=== PATIENT | female | born 1955 | race Caucasian/White ===

== ENCOUNTER 2023-08-30 16:36 | Inpatient (IN) | payer MEDICARE ==
[~2023-08-30] VITALS: Ht 177.8 cm; Wt 63.5 kg
[2023-08-30 17:20] LABS: BASOPHILS % (AUTO) 0.4 % (0.0-2.0); EOSINOPHILS # (AUTO) 0.1 K/uL (0.0-0.7); HEMATOCRIT 42 % (33-45); HEMOGLOBIN 13.7 g/dL (11.5-14.8); LYMPHOCYTES # (AUTO) 1.2 K/uL (0.8-4.8); LYMPHOCYTES % (AUTO) 19.4 % (20.0-44.0); MEAN CORPUSCULAR HEMOGLOBIN 32 PG (26.0-33.0); MEAN CORPUSCULAR HGB CONC 33 g/dl (31.0-36.0); MEAN CORPUSCULAR VOLUME 96 fL (82-100); MONOCYTES # (AUTO) 0.4 K/uL (0.1-1.30); MONOCYTES % (AUTO) 6.3 % (2.0-12.0); NEUTROPHILS # (AUTO) 4.3 K/uL (1.8-8.9); NEUTROPHILS % (AUTO) 71.9 % (43.0-81.0); PLATELET COUNT (AUTO) 262 K/uL (150-450); RED BLOOD CELL COUNT(AUTO) 4.35 MIL/uL (4.0-5.2); RED CELL DISTRIBUTION WIDTH 14.2 % (11.5-15.0)
[2023-08-30 17:34] LABS: CALCIUM, SERUM 9.4 mg/dL (8.5-10.1); CARBON DIOXIDE 27 mmol/L (21-32); CHLORIDE 107 mmol/L (98-107); GLUCOSE 75 mg/dL (74-106); POTASSIUM 4.8 mmol/L (3.5-5.1); SODIUM SERUM 140 mmol/L (136-145); UREA NITROGEN, BLOOD 22 mg/dL (7-18)
[2023-08-30 17:38] LABS: APPEARANCE,URINE Clear (CLEAR); BILIRUBIN,URINE Negative (NEGATIVE); BLOOD, URINE Negative Ery/uL (NEGATIVE); COLOR,URINE YELLOW (YELLOW); KETONES,URINE Negative (NEGATIVE); LEUKOCYTE ESTERASE ,URINE Negative (NEGATIVE); NITRITE, URINE Negative (NEGATIVE); PH,URINE 6.5 (5.0-8.0); PROTEIN,URINE Negative (NEGATIVE); UGLUCOSE Negative (NEGATIVE); UROBILINOGEN,URINE 0.2 EU/dL (0.2)
[2023-08-30 17:40] LABS: ALANINE AMINOTRANSFERASE 51 U/L (12-78); ALBUMIN 3.6 g/dL (3.4-5.0); ALKALINE PHOSPHATASE 112 U/L (46-116); ASPARTATE AMINOTRANSFERASE 26 U/L (15-37); BILIRUBIN,DIRECT 0.1 mg/dL (0.0-0.2); BILIRUBIN,TOTAL 0.3 mg/dL (0.2-1.0); INR 0.96 (0.91-1.10); PARTIAL THROMBOPLASTIN TIME 32.7 SEC (24.3-34.3); PROTHROMBIN TIME 9.9 SECS (9.2-11.1); TOTAL PROTEIN, SERUM 7.4 g/dL (6.4-8.2)
[2023-08-30] MEDS: IV NS 0.9% 1,000 ML BAG IV ONE (18:28)
[2023-08-30] MEDS: MORPHINE SULFATE INJ 2 MG/ML DISP.SYRIN IV ONE (18:28)
[2023-08-30 20:02] LABS: THYROID STIMULATING HORMONE 0.791 uIU/mL (0.358-3.74)
[2023-08-30] MEDS ORDERED: MAGNESIUM HYDROXIDE 30 ML UDC PO PRN (22:00)
[2023-08-30] MEDS ORDERED: Z GUARD REMEDY 4 OZ OINT TP PRN (22:00)
[2023-08-30] MEDS ORDERED: ONDANSETRON HCL/PF 4 MG/2 ML VIAL IVP PRN (22:00)
[2023-08-30] MEDS ORDERED: IV NS 0.9% 1,000 ML IV PRN (22:00)
[2023-08-30] MEDS ORDERED: MAG HYDROX/AL HYDROX/SIMETH 30 ML UDC PO PRN (22:00)
[2023-08-31 07:16] LABS: BASOPHILS % (AUTO) 0.5 % (0.0-2.0); EOSINOPHILS # (AUTO) 0.2 K/uL (0.0-0.7); EOSINOPHILS % (AUTO) 3.5 % (0.0-6.0); HEMATOCRIT 38 % (33-45); HEMOGLOBIN 12.5 g/dL (11.5-14.8); LYMPHOCYTES % (AUTO) 36.4 % (20.0-44.0); MEAN CORPUSCULAR HEMOGLOBIN 33 PG (26.0-33.0); MEAN CORPUSCULAR HGB CONC 33 g/dl (31.0-36.0); MEAN CORPUSCULAR VOLUME 99 fL (82-100); MONOCYTES # (AUTO) 0.4 K/uL (0.1-1.30); MONOCYTES % (AUTO) 6.8 % (2.0-12.0); NEUTROPHILS % (AUTO) 52.8 % (43.0-81.0); PLATELET COUNT (AUTO) 223 K/uL (150-450); RED BLOOD CELL COUNT(AUTO) 3.83 MIL/uL (4.0-5.2); RED CELL DISTRIBUTION WIDTH 14.3 % (11.5-15.0); WHITE BLOOD COUNT (AUTO) 5.6 K/uL (4.3-11.0)
[2023-08-31 07:34] LABS: CALCIUM, SERUM 8.8 mg/dL (8.5-10.1); MAGNESIUM 1.8 mg/dL (1.8-2.4); PHOSPHORUS 3.1 mg/dL (2.5-4.9); POTASSIUM 3.8 mmol/L (3.5-5.1)
[2023-08-31] MEDS ORDERED: ATOR40TA PO (08:04)
[2023-08-31] MEDS ORDERED: LACT10SO68 PO (08:04)
[2023-08-31] MEDS ORDERED: LEVO75TA7 PO (08:04)
[2023-08-31] MEDS ORDERED: CHOL500062 PO (08:04)
[2023-08-31] MEDS ORDERED: LEVA15HF4 IH (08:04)
[2023-08-31] MEDS ORDERED: [UNRECOGNIZED DRUG - CODE] PO (08:04)
[2023-08-31] MEDS ORDERED: CALC500T88 PO (08:04)
[2023-08-31] MEDS ORDERED: VITS42.53 TP (08:04)
[2023-08-31] MEDS ORDERED: GLUC1KIT IM (08:04)
[2023-08-31] MEDS ORDERED: BUSP10TA3 PO (08:04)
[2023-08-31] MEDS ORDERED: LITH600C PO (08:04)
[2023-08-31] MEDS ORDERED: CLOZ100T32 PO ×2 (08:04)
[2023-08-31] MEDS ORDERED: DOCU250C14 PO (08:04)
[2023-08-31] MEDS ORDERED: LIDO30AD10 TP (08:04)
[2023-08-31] MEDS ORDERED: MEMA10TA PO (08:04)
[2023-08-31] MEDS ORDERED: MAG30ORA PO (08:04)
[2023-08-31] MEDS ORDERED: ACET325T53 PO (08:04)
[2023-08-31] MEDS ORDERED: GALA8TAB8 PO (08:04)
[2023-08-31] MEDS ORDERED: METF-442 PO (08:04)
[2023-08-31] MEDS ORDERED: FAMO20TA8 PO (08:04)
[2023-08-31] MEDS ORDERED: GALA4TAB11 PO (08:04)
[2023-08-31] MEDS ORDERED: HALO5TAB PO (08:04)
[2023-08-31] MEDS ORDERED: MELA5TAB PO (08:04)
[2023-08-31] MEDS ORDERED: CARV6.252 PO (08:04)
[2023-08-31] MEDS ORDERED: HYDR50CA5 PO (08:04)
[2023-08-31] MEDS ORDERED: BISA10SU11 RC (08:04)
[2023-08-31 12:10] VITALS: BP 126/72; TEMP 98.2; O2SAT 99
[2023-08-31] MEDS: IV NS 0.9% 1,000 ML IV SCH (12:36)
[2023-08-31 16:00] VITALS: BP 122/89; TEMP 98.2; O2SAT 98
[2023-08-31] MEDS ORDERED: MAG HYDROX/AL HYDROX/SIMETH 30 ML UDC PO PRN (18:30)
[2023-08-31] MEDS ORDERED: ACETAMINOPHEN 325 MG TABLET PO PRN (18:30)
[2023-08-31] MEDS ORDERED: BISACODYL SUPP (10 MG) 10 MG/SUPP.RECT SUPP.RECT RC PRN (18:30)
[2023-08-31] MEDS ORDERED: LACTULOSE 10 G/15 ML UDC (PYXIS) PO PRN (19:00)
[2023-08-31 20:00] VITALS: BP 139/76; TEMP 97.3; O2SAT 98
[2023-08-31] MEDS: busPIRone 5 MG TABLET PO SCH (20:35)
[2023-08-31] MEDS: ACETAMINOPHEN 325 MG TABLET PO PRN (20:35)
[2023-08-31] MEDS: CLOZAPINE 100 MG TABLET PO SCH (21:47)
[2023-08-31] MEDS: ATORVASTATIN 40 MG TABLET PO SCH (21:47)
[2023-08-31] MEDS: LITHIUM CARBONATE (300 MG CAP) 300 MG CAPSULE PO SCH (21:48)
[2023-08-31] MEDS: GALANTAMINE HYDROBROMIDE 4 MG TABLET PO SCH (21:48)
[2023-08-31] MEDS ORDERED: Medication Not On Formulary EA (Melatonin 10 MG) PO SCH (22:00)
[2023-08-31] MEDS: MORPHINE SULFATE INJ 2 MG/ML DISP.SYRIN IV PRN (23:40)
[2023-09-01 04:00] VITALS: BP 127/81; TEMP 98; O2SAT 94
[2023-09-01 08:00] VITALS: BP 115/57; TEMP 97.4; O2SAT 94
[2023-09-01] MEDS ORDERED: CLOZAPINE 150 MG PO SCH (09:00)
[2023-09-01] MEDS: LIDOCAINE 5% (PATCH) 1 EA PATCH TP SCH (09:15)
[2023-09-01] MEDS: CARVEDILOL 6.25 MG TABLET PO SCH (09:16)
[2023-09-01] MEDS: CALCIUM CARBONATE (1250) 500 MG TABLET PO SCH (09:16)
[2023-09-01] MEDS: CLOZAPINE 100 MG TABLET PO SCH ×2 (09:16→12:42)
[2023-09-01] MEDS: MEMANTINE HCL 5 MG TABLET PO SCH (09:16)
[2023-09-01] MEDS: METFORMIN 500 MG TABLET PO SCH (09:16)
[2023-09-01] MEDS: LEVOTHYROXINE SODIUM 75 MCG TABLET PO SCH (09:16)
[2023-09-01] MEDS: DOCUSATE SODIUM 250 MG CAPSULE PO SCH (09:16)
[2023-09-01] MEDS: FAMOTIDINE (20 MG) 20 MG TABLET PO SCH (09:16)
[2023-09-01] MEDS: HYDROCODONE/APAP 5/325MG TABLET PO PRN (09:40)
[2023-09-01] MEDS ORDERED: CLOZAPINE 25 MG TABLET PO SCH (13:00)
[2023-09-01 16:00] VITALS: BP 119/77; TEMP 97.9; O2SAT 95
[2023-09-01 20:00] VITALS: BP 133/69; TEMP 98.4; O2SAT 95
[2023-09-02 04:00] VITALS: BP 129/62; TEMP 98.1; O2SAT 97
[2023-09-02 08:00] VITALS: BP 109/72; TEMP 97.7; O2SAT 97
[2023-09-02 16:00] VITALS: BP 146/75; TEMP 97.8; O2SAT 97
[2023-09-02 20:00] VITALS: BP 123/68; TEMP 98.3; O2SAT 96
[2023-09-03 06:00] VITALS: BP 114/78; TEMP 98.6; O2SAT 100
[2023-09-03 08:18] VITALS: BP 105/65; TEMP 98.3; O2SAT 96
[2023-09-03 09:15] VITALS: BP 105/65
== END 2023-09-03 12:00 | DRG 640 ==
LOC: ER 16:45 → TRANSITION 08-31 05:29 → MEDSG1 08-31 11:16
PROVIDERS: ADMIT Internal Medicine; ATTEND Internal Medicine
DX: E86.0 Dehydration (principal); G93.41 Metabolic encephalopathy; E44.1 Mild protein-calorie malnutrition; M94.0 Chondrocostal junction syndrome [Tietze]; I10 Essential (primary) hypertension; M81.0 Age-related osteoporosis without current pathological fracture; E78.5 Hyperlipidemia, unspecified; E88.09 Other disorders of plasma-protein metabolism, not elsewhere classified; F31.9 Bipolar disorder, unspecified; I11.0 Hypertensive heart disease with heart failure; I25.10 Atherosclerotic heart disease of native coronary artery without angina pectoris; I50.9 Heart failure, unspecified; Z79.84 Long term (current) use of oral hypoglycemic drugs; R53.1 Weakness; R13.10 Dysphagia, unspecified; M19.90 Unspecified osteoarthritis, unspecified site; Z68.20 Body mass index [BMI] 20.0-20.9, adult
CPT/HCPCS: 36415; 70450-TC; 71045-TC; 80048-TC; 80076-TC; 82962-TC; 83735-TC; 83880; 84100-TC; 84439-TC; 84443-TC; 84484-TC; 85025-TC; 85730-TC; 87081-TC; 93307-TC; G0378; J2270; J7030

== ENCOUNTER 2023-10-31 18:53 | Inpatient (IN) | payer MEDICARE ==
[~2023-10-31] VITALS: Ht 177.8 cm; Wt 68.0 kg
[2023-10-31] VITALS: BP 108/53; TEMP 98.1; O2SAT 94
[~2023-10-31 18:53] MED LIST: ACET325T53 PO; ATOR40TA PO; BISA10SU11 RC; BUSP10TA3 PO; CALC500T88 PO; CARV6.252 PO; CHOL500062 PO; CLOZ100T32 PO; DOCU250C14 PO; FAMO20TA8 PO; GALA4TAB11 PO; GALA8TAB8 PO; GLUC1KIT IM; HALO5TAB PO; HYDR50CA5 PO; LACT10SO68 PO; LEVA15HF4 IH; LEVO75TA7 PO; LIDO30AD10 TP; LITH600C PO; LORA-258 PO; MAG30ORA PO; MELA5TAB PO; MEMA10TA PO; METF-442 PO; VITS42.53 TP; [UNRECOGNIZED DRUG - CODE] PO
[2023-10-31] MEDS ORDERED: HYDROCODONE/APAP 5/325MG TABLET ONE (19:40)
[2023-10-31 19:51] LABS: BASOPHILS % (AUTO) 0.6 % (0.0-2.0); EOSINOPHILS # (AUTO) 0.2 K/uL (0.0-0.7); EOSINOPHILS % (AUTO) 2.8 % (0.0-6.0); HEMATOCRIT 34 % (33-45); HEMOGLOBIN 11.3 g/dL (11.5-14.8); LYMPHOCYTES # (AUTO) 1.9 K/uL (0.8-4.8); LYMPHOCYTES % (AUTO) 28.3 % (20.0-44.0); MEAN CORPUSCULAR HEMOGLOBIN 32 PG (26.0-33.0); MEAN CORPUSCULAR HGB CONC 33 g/dl (31.0-36.0); MEAN CORPUSCULAR VOLUME 95 fL (82-100); MONOCYTES # (AUTO) 0.6 K/uL (0.1-1.30); MONOCYTES % (AUTO) 8.2 % (2.0-12.0); NEUTROPHILS # (AUTO) 4.1 K/uL (1.8-8.9); NEUTROPHILS % (AUTO) 60.1 % (43.0-81.0); PLATELET COUNT (AUTO) 273 K/uL (150-450); RED BLOOD CELL COUNT(AUTO) 3.58 MIL/uL (4.0-5.2); RED CELL DISTRIBUTION WIDTH 14.5 % (11.5-15.0); WHITE BLOOD COUNT (AUTO) 6.9 K/uL (4.3-11.0)
[2023-10-31] MEDS: HYDROCODONE/APAP 5/325MG TABLET PO ONE (19:56)
[2023-10-31] MEDS ORDERED: GABA300C PO (20:00)
[2023-10-31] MEDS ORDERED: POVI3780 TP (20:00)
[2023-10-31] MEDS ORDERED: ACET-73 PO (20:00)
[2023-10-31] MEDS ORDERED: IBUP-2715 PO (20:00)
[2023-10-31] MEDS ORDERED: MAGN296S31 PO (20:00)
[2023-10-31] MEDS ORDERED: TIZA-180 PO ×2 (20:00)
[2023-10-31] MEDS ORDERED: GABA600T12 PO ×2 (20:00)
[2023-10-31 20:07] LABS: INR 0.93 (0.91-1.10); PARTIAL THROMBOPLASTIN TIME 32.2 SEC (24.3-34.3); PROTHROMBIN TIME 9.9 SECS (9.2-11.1)
[2023-10-31 20:45] LABS: ALANINE AMINOTRANSFERASE 49 U/L (12-78); ALBUMIN 2.8 g/dL (3.4-5.0); ALKALINE PHOSPHATASE 123 U/L (46-116); ASPARTATE AMINOTRANSFERASE 27 U/L (15-37); BILIRUBIN,DIRECT 0.1 mg/dL (0.0-0.2); BILIRUBIN,TOTAL 0.3 mg/dL (0.2-1.0); CALCIUM, SERUM 9.5 mg/dL (8.5-10.1); CARBON DIOXIDE 24 mmol/L (21-32); CHLORIDE 105 mmol/L (98-107); CREATININE 0.8 mg/dL (0.6-1.3); GLUCOSE 105 mg/dL (74-106); NT-PRO BNP 170 pg/mL (0-125); POTASSIUM 4.3 mmol/L (3.5-5.1); SODIUM SERUM 139 mmol/L (136-145); TOTAL PROTEIN, SERUM 6.6 g/dL (6.4-8.2); UREA NITROGEN, BLOOD 22 mg/dL (7-18)
[2023-10-31 22:05] LABS: ACETAMINOPHEN 0 ug/ml (10-30); ALCOHOL, BLOOD < 3 mg/dL (0-10); SALICYLATE 1.8 mg/dL (2.8-20.0)
[2023-10-31] MEDS ORDERED: IBUPROFEN 400 MG TABLET ONE (22:34)
[2023-10-31 22:39] LABS: AMPHETAMINE, URINE NEGATIVE (NEGATIVE); BARBITURATE, URINE NEGATIVE (NEGATIVE); BENZODIAZEPINE, URINE NEGATIVE (NEGATIVE); CANNABINOID, URINE NEGATIVE (NEGATIVE); COCCAINE, URINE NEGATIVE (NEGATIVE); PHENCYCLIDINE SCREEN,URINE NEGATIVE (NEGATIVE)
[2023-10-31 22:49] LABS: OPIATE, URINE POSITIVE (NEGATIVE)
[2023-11-01] MEDS ORDERED: Z GUARD REMEDY 4 OZ OINT TP PRN
[2023-11-01] MEDS ORDERED: ENOXAPARIN SODIUM 40 MG/0.4 ML DISP.SYRIN SQ SCH
[2023-11-01] MEDS ORDERED: MAG HYDROX/AL HYDROX/SIMETH 30 ML UDC PO PRN
[2023-11-01] MEDS ORDERED: ONDANSETRON HCL/PF 4 MG/2 ML VIAL IVP PRN
[2023-11-01] MEDS ORDERED: ZOLPIDEM TARTRATE 5 MG TABLET PO PRN
[2023-11-01] MEDS ORDERED: MAGNESIUM HYDROXIDE 30 ML UDC PO PRN
[2023-11-01] MEDS ORDERED: MAGNESIUM CITRATE 296 ML BOTTLE PO PRN (00:30)
[2023-11-01] MEDS ORDERED: Medication Not On Formulary EA (Glucagon,Human Recombinant (Glucagon Emergency Kit) 1 MG IM SCH (00:30)
[2023-11-01] MEDS ORDERED: BISACODYL SUPP (10 MG) 10 MG/SUPP.RECT SUPP.RECT RC PRN (00:30)
[2023-11-01] MEDS ORDERED: IBUPROFEN 200 MG TABLET PO PRN (00:30)
[2023-11-01] MEDS ORDERED: LACTULOSE 10 G/15 ML UDC (PYXIS) PO PRN (01:00)
[2023-11-01] MEDS ORDERED: ALBUTEROL FS 2.5 MG/3 ML VIAL.NEB NEB PRN (01:00)
[2023-11-01] MEDS: ENOXAPARIN SODIUM 40 MG/0.4 ML DISP.SYRIN SQ SCH (01:19)
[2023-11-01 02:05] VITALS: BP 108/53; TEMP 98.1; O2SAT 95
[2023-11-01] MEDS: ACETAMINOPHEN 325 MG TABLET PO PRN (03:23)
[2023-11-01] MEDS: LORAZEPAM 0.5 MG TABLET PO PRN (03:43)
[2023-11-01] MEDS ORDERED: TIZANIDINE HCL 4 MG TABLET PO PRN ×2 (05:00)
[2023-11-01] MEDS: KETOROLAC TROMETHAMINE INJ 30 MG/ML VIAL ONE (05:37)
[2023-11-01] MEDS: PANTOPRAZOLE 40 MG TABLET.DR PO SCH (06:36)
[2023-11-01 06:39] LABS: BASOPHILS % (AUTO) 0.6 % (0.0-2.0); EOSINOPHILS # (AUTO) 0.2 K/uL (0.0-0.7); EOSINOPHILS % (AUTO) 3.6 % (0.0-6.0); HEMATOCRIT 33 % (33-45); HEMOGLOBIN 10.7 g/dL (11.5-14.8); LYMPHOCYTES # (AUTO) 2.2 K/uL (0.8-4.8); LYMPHOCYTES % (AUTO) 38.6 % (20.0-44.0); MEAN CORPUSCULAR HEMOGLOBIN 31 PG (26.0-33.0); MEAN CORPUSCULAR HGB CONC 33 g/dl (31.0-36.0); MEAN CORPUSCULAR VOLUME 96 fL (82-100); MONOCYTES # (AUTO) 0.5 K/uL (0.1-1.30); NEUTROPHILS # (AUTO) 2.8 K/uL (1.8-8.9); NEUTROPHILS % (AUTO) 49.2 % (43.0-81.0); PLATELET COUNT (AUTO) 266 K/uL (150-450); RED BLOOD CELL COUNT(AUTO) 3.41 MIL/uL (4.0-5.2); RED CELL DISTRIBUTION WIDTH 14.8 % (11.5-15.0); WHITE BLOOD COUNT (AUTO) 5.7 K/uL (4.3-11.0)
[2023-11-01 07:26] LABS: ALBUMIN 2.5 g/dL (3.4-5.0); BILIRUBIN,DIRECT 0.1 mg/dL (0.0-0.2); BILIRUBIN,TOTAL 0.4 mg/dL (0.2-1.0); CALCIUM, SERUM 8.6 mg/dL (8.5-10.1); CREATININE 0.8 mg/dL (0.6-1.3); PHOSPHORUS 3.8 mg/dL (2.5-4.9); POTASSIUM 4.3 mmol/L (3.5-5.1)
[2023-11-01 07:43] LABS: THYROID STIMULATING HORMONE 1.2 uIU/mL (0.358-3.74)
[2023-11-01] MEDS ORDERED: CLOZAPINE 150 MG PO SCH (09:00)
[2023-11-01] MEDS ORDERED: GABAPENTIN 300 MG CAPSULE PO SCH ×2 (09:00)
[2023-11-01] MEDS ORDERED: POVIDONE IODINE TP SCH (09:00)
[2023-11-01] MEDS ORDERED: CLOZAPINE 100 MG TABLET PO SCH ×2 (09:00→22:00)
[2023-11-01] MEDS: GALANTAMINE HYDROBROMIDE 4 MG TABLET PO SCH (09:07)
[2023-11-01] MEDS: CHOLECALCIFEROL 1,000 UNIT TABLET (VIT D3) PO SCH (09:08)
[2023-11-01] MEDS: CALCIUM CARBONATE (1250) 500 MG TABLET PO SCH (09:08)
[2023-11-01] MEDS: GABAPENTIN 300 MG CAPSULE PO SCH (09:09)
[2023-11-01] MEDS: MEMANTINE HCL 5 MG TABLET PO SCH (09:09)
[2023-11-01] MEDS: LEVOTHYROXINE SODIUM 75 MCG TABLET PO SCH (09:09)
[2023-11-01] MEDS: busPIRone 5 MG TABLET PO SCH (09:09)
[2023-11-01] MEDS: METFORMIN 500 MG TABLET PO SCH (09:09)
[2023-11-01] MEDS: FAMOTIDINE (20 MG) 20 MG TABLET PO SCH (09:09)
[2023-11-01] MEDS: CARVEDILOL 6.25 MG TABLET PO SCH (09:10)
[2023-11-01] MEDS: LIDOCAINE 5% (PATCH) 1 EA PATCH TP SCH (09:10)
[2023-11-01] MEDS: KETOROLAC TROMETHAMINE 15 MG/ML VIAL IV PRN (10:32)
[2023-11-01 16:06] VITALS: BP 120/79
[2023-11-01] MEDS ORDERED: ALBU2.5V13 NEB (18:49)
[2023-11-01] MEDS ORDERED: ALLA266C2 TP (18:49)
[2023-11-01] MEDS ORDERED: PANT40TA49 PO (18:49)
[2023-11-01] MEDS ORDERED: ATORVASTATIN 40 MG TABLET PO SCH (22:00)
[2023-11-01] MEDS ORDERED: GALANTAMINE HYDROBROMIDE 4 MG TABLET PO SCH (22:00)
[2023-11-01] MEDS ORDERED: LITHIUM CARBONATE (300 MG CAP) 300 MG CAPSULE PO SCH (22:00)
[2023-11-01] MEDS ORDERED: MELATONIN 3 MG TABLET PO SCH (22:00)
== END 2023-11-01 17:40 | DRG 641 ==
LOC: ER 18:56 → MED 23:45
PROVIDERS: ADMIT Nurse Practitioner Family; ATTEND Nurse Practitioner Acute Care
DX: R62.7 Adult failure to thrive (principal); F03.94 Unspecified dementia, unspecified severity, with anxiety; F03.93 Unspecified dementia, unspecified severity, with mood disturbance; F03.911 Unspecified dementia, unspecified severity, with agitation; K21.9 Gastro-esophageal reflux disease without esophagitis; I11.0 Hypertensive heart disease with heart failure; E86.0 Dehydration; Z68.21 Body mass index [BMI] 21.0-21.9, adult; Z20.822 Contact with and (suspected) exposure to COVID-19; W19.XXXA Unspecified fall, initial encounter; Y92.129 Unspecified place in nursing home as the place of occurrence of the external cause; I50.9 Heart failure, unspecified; E11.9 Type 2 diabetes mellitus without complications; M81.0 Age-related osteoporosis without current pathological fracture; E03.9 Hypothyroidism, unspecified; E78.5 Hyperlipidemia, unspecified; F31.9 Bipolar disorder, unspecified; F41.9 Anxiety disorder, unspecified; Z98.890 Other specified postprocedural states; Z79.84 Long term (current) use of oral hypoglycemic drugs; Z79.899 Other long term (current) drug therapy; G89.29 Other chronic pain; B35.3 Tinea pedis; Z79.890 Hormone replacement therapy; Z79.51 Long term (current) use of inhaled steroids; F39 Unspecified mood [affective] disorder
CPT/HCPCS: 36415; 71045-TC; 73110; 80048-TC; 80076-TC; 83735-TC; 83880; 84100-TC; 84443-TC; 84484-TC; 85025-TC; 85730-TC; 87081-TC; 97110-TC; 97112-TC; 97116-TC; 97530-TC; 97535-TC; A6403; G0378; G0480; J1650; J1885

== ENCOUNTER 2023-11-01 16:30 | Inpatient (IN) | payer MEDICARE, OTHER ==
[~2023-11-01] VITALS: Ht 177.8 cm; Wt 81.5 kg
[~2023-11-01 16:30] MED LIST changes: +ACET-73 PO; -DOCU250C14 PO; +GABA300C PO; +GABA600T12 PO; -HALO5TAB PO; -HYDR50CA5 PO; +IBUP-2715 PO; +MAGN296S31 PO; +POVI3780 TP; +TIZA-180 PO; -VITS42.53 TP
[2023-11-01] MEDS ORDERED: ALBU2.5V13 NEB (18:49)
[2023-11-01] MEDS ORDERED: ALLA266C2 TP (18:49)
[2023-11-01] MEDS ORDERED: PANT40TA49 PO (18:49)
[2023-11-01 20:00] VITALS: BP 130/70; TEMP 98.3; O2SAT 98
[2023-11-01] MEDS: IBUPROFEN 400 MG TABLET PO PRN (20:24)
[2023-11-01] MEDS ORDERED: BISACODYL SUPP (10 MG) 10 MG/SUPP.RECT SUPP.RECT RC PRN (21:00)
[2023-11-01] MEDS ORDERED: LACTULOSE 10 G/15 ML UDC (PYXIS) PO PRN (21:00)
[2023-11-01] MEDS ORDERED: MAGNESIUM CITRATE 296 ML BOTTLE PO PRN (21:00)
[2023-11-01] MEDS ORDERED: ALBUTEROL FS 2.5 MG/0.5 ML VIAL.NEB NEB PRN (21:00)
[2023-11-01] MEDS ORDERED: MAG HYDROX/AL HYDROX/SIMETH 30 ML UDC PO PRN (21:00)
[2023-11-01] MEDS ORDERED: TIZANIDINE HCL 4 MG TABLET PO PRN (21:00)
[2023-11-01] MEDS ORDERED: GLUCAGON,HUMAN RECOMBINANT 1 MG/VIAL VIAL IM PRN (21:00)
[2023-11-01] MEDS ORDERED: QUETIAPINE FUMARATE 25 MG TABLET PO PRN (21:30)
[2023-11-01] MEDS: CARVEDILOL 6.25 MG TABLET PO SCH (21:46)
[2023-11-01] MEDS: ATORVASTATIN 40 MG TABLET PO SCH (21:47)
[2023-11-01] MEDS: FAMOTIDINE (20 MG) 20 MG TABLET PO SCH (21:47)
[2023-11-01] MEDS: GABAPENTIN 300 MG CAPSULE PO SCH (21:47)
[2023-11-01] MEDS ORDERED: Medication Not On Formulary EA (Melatonin 9 MG) PO SCH (22:00)
[2023-11-02] MEDS ORDERED: PANTOPRAZOLE 40 MG TABLET.DR PO SCH (07:30)
[2023-11-02 08:00] VITALS: BP 134/69; TEMP 97.6; O2SAT 95
[2023-11-02] MEDS: LEVOTHYROXINE SODIUM 75 MCG TABLET PO SCH (08:20)
[2023-11-02] MEDS: CHOLECALCIFEROL 1,000 UNIT TABLET (VIT D3) PO SCH (08:21)
[2023-11-02] MEDS: CALCIUM CARBONATE (1250) 500 MG TABLET PO SCH (08:22)
[2023-11-02] MEDS: METFORMIN 500 MG TABLET PO SCH (08:22)
[2023-11-02] MEDS: LIDOCAINE 5% (PATCH) 1 EA PATCH TP SCH (08:23)
[2023-11-02] MEDS: busPIRone 5 MG TABLET PO SCH (09:58)
[2023-11-02] MEDS: CLOZAPINE 100 MG TABLET PO SCH ×2 (09:58→21:29)
[2023-11-02 16:00] VITALS: BP_SYST 105; BP_SYST 151; BP_DIAS 51; BP_DIAS 84; TEMP 97.6; TEMP 98; O2SAT 96; O2SAT 97
[2023-11-02 20:00] VITALS: BP 134/79; TEMP 98.7; O2SAT 97
[2023-11-02] MEDS: GALANTAMINE HYDROBROMIDE 4 MG TABLET PO SCH (21:29)
[2023-11-02] MEDS: LITHIUM CARBONATE (300 MG CAP) 300 MG CAPSULE PO SCH (21:29)
[2023-11-03] MEDS: ZOLPIDEM TARTRATE 5 MG TABLET PO PRN (00:53)
[2023-11-03 08:00] VITALS: BP 116/64; TEMP 97.8; O2SAT 98
[2023-11-03 08:21] VITALS: BP 116/64
[2023-11-04] MEDS ORDERED: MUPIROCIN OINT 2% 22 GM TUBE TP SCH (09:00)
== END 2023-11-03 14:40 | DRG 885 ==
LOC: GPS 16:30
PROVIDERS: ADMIT Psychiatry & Neurology Psychiatry; ATTEND Nurse Practitioner Family
DX: F20.0 Paranoid schizophrenia (principal); E11.9 Type 2 diabetes mellitus without complications; E03.9 Hypothyroidism, unspecified; E78.5 Hyperlipidemia, unspecified; I10 Essential (primary) hypertension; M21.612 Bunion of left foot; M21.611 Bunion of right foot; F39 Unspecified mood [affective] disorder; K21.9 Gastro-esophageal reflux disease without esophagitis; Z73.6 Limitation of activities due to disability; Z20.822 Contact with and (suspected) exposure to COVID-19; S91.302A Unspecified open wound, left foot, initial encounter; X58.XXXA Exposure to other specified factors, initial encounter; G89.4 Chronic pain syndrome; E66.3 Overweight; Y93.9 Activity, unspecified; Y92.129 Unspecified place in nursing home as the place of occurrence of the external cause; Y99.9 Unspecified external cause status; Z79.899 Other long term (current) drug therapy; Z91.199 Patient's noncompliance with other medical treatment and regimen due to unspecified reason; Z68.25 Body mass index [BMI] 25.0-25.9, adult
CPT/HCPCS: 36415; 80178-TC

== ENCOUNTER 2024-07-25 15:10 | Inpatient (IN) | payer MEDICARE, OTHER ==
[~2024-07-25] VITALS: Ht 165.1 cm; Wt 85.7 kg
[~2024-07-25 15:10] MED LIST changes: -ACET-73 PO; +ALBU2.5V13 NEB; +ALLA266C2 TP; -GABA300C PO; -GABA600T12 PO; -LEVA15HF4 IH; -LORA-258 PO; +PANT40TA49 PO
[2024-07-25 15:55] LABS: BASOPHILS % (AUTO) 0.5 % (0.0-2.0); EOSINOPHILS # (AUTO) 0.2 K/uL (0.0-0.7); EOSINOPHILS % (AUTO) 3.3 % (0.0-6.0); HEMATOCRIT 35 % (33-45); HEMOGLOBIN 11.4 g/dL (11.5-14.8); LYMPHOCYTES # (AUTO) 1.6 K/uL (0.8-4.8); LYMPHOCYTES % (AUTO) 21.3 % (20.0-44.0); MEAN CORPUSCULAR HEMOGLOBIN 30 PG (26.0-33.0); MEAN CORPUSCULAR HGB CONC 33 g/dl (31.0-36.0); MEAN CORPUSCULAR VOLUME 91 fL (82-100); MONOCYTES # (AUTO) 0.7 K/uL (0.1-1.30); NEUTROPHILS # (AUTO) 4.9 K/uL (1.8-8.9); NEUTROPHILS % (AUTO) 65.9 % (43.0-81.0); PLATELET COUNT (AUTO) 281 K/uL (150-450); RED BLOOD CELL COUNT(AUTO) 3.82 MIL/uL (4.0-5.2); WHITE BLOOD COUNT (AUTO) 7.4 K/uL (4.3-11.0)
[2024-07-25 16:03] LABS: CALCIUM, SERUM 9.3 mg/dL (8.5-10.1); CARBON DIOXIDE 30 mmol/L (21-32); CHLORIDE 96 mmol/L (98-107); CREATININE 0.9 mg/dL (0.6-1.3); GLUCOSE 85 mg/dL (74-106); POTASSIUM 4.4 mmol/L (3.5-5.1); SODIUM SERUM 132 mmol/L (136-145); UREA NITROGEN, BLOOD 21 mg/dL (7-18)
[2024-07-25 16:16] LABS: ALANINE AMINOTRANSFERASE 22 U/L (12-78); ALBUMIN 3.5 g/dL (3.4-5.0); ALKALINE PHOSPHATASE 138 U/L (46-116); ASPARTATE AMINOTRANSFERASE 22 U/L (15-37); BILIRUBIN,DIRECT 0.1 mg/dL (0.0-0.2); BILIRUBIN,TOTAL 0.4 mg/dL (0.2-1.0); NT-PRO BNP 151 pg/mL (0-125); TOTAL PROTEIN, SERUM 7.1 g/dL (6.4-8.2)
[2024-07-25 16:19] LABS: APPEARANCE,URINE CLEAR (CLEAR); BILIRUBIN,URINE NEGATIVE (NEGATIVE); BLOOD, URINE NEGATIVE Ery/uL (NEGATIVE); COLOR,URINE YELLOW (YELLOW); KETONES,URINE NEGATIVE (NEGATIVE); LEUKOCYTE ESTERASE ,URINE NEGATIVE (NEGATIVE); NITRITE, URINE NEGATIVE (NEGATIVE); PROTEIN,URINE NEGATIVE (NEGATIVE); UGLUCOSE NEGATIVE (NEGATIVE); UROBILINOGEN,URINE 0.2 EU/dL (0.2)
[2024-07-25] MEDS ORDERED: FURO-145 PO (16:33)
[2024-07-25] MEDS ORDERED: CLON1TAB12 PO (16:33)
[2024-07-25] MEDS ORDERED: LINA5TAB PO (16:33)
[2024-07-25] MEDS ORDERED: HYDR-4303 PO (16:33)
[2024-07-25] MEDS ORDERED: CHOL100062 PO (16:33)
[2024-07-25] MEDS ORDERED: ACET-2030 PO (16:33)
[2024-07-25] MEDS ORDERED: BLOO-668 IN (16:33)
[2024-07-25] MEDS ORDERED: MELO7.5T12 PO (16:33)
[2024-07-25] MEDS ORDERED: KETOROLAC TROMETHAMINE 15 MG/ML VIAL ONE (16:39)
[2024-07-25] MEDS: KETOROLAC TROMETHAMINE 15 MG/ML VIAL IV ONE (16:43)
[2024-07-25] MEDS ORDERED: ACETAMINOPHEN 325 MG TABLET PO PRN (17:00)
[2024-07-25] MEDS ORDERED: LACTULOSE 10 G/15 ML UDC (PYXIS) GT PRN (17:00)
[2024-07-25] MEDS ORDERED: BISACODYL SUPP (10 MG) 10 MG/SUPP.RECT SUPP.RECT RC PRN (17:00)
[2024-07-25] MEDS ORDERED: Z GUARD REMEDY 4 OZ OINT TP PRN (17:00)
[2024-07-25] MEDS ORDERED: HYDROCODONE/APAP 5/325MG TABLET PO PRN (17:00)
[2024-07-25] MEDS ORDERED: MAGNESIUM HYDROXIDE 30 ML UDC PO PRN (17:00)
[2024-07-25] MEDS ORDERED: ONDANSETRON HCL/PF 4 MG/2 ML VIAL IVP PRN (17:00)
[2024-07-25] MEDS ORDERED: MAG HYDROX/AL HYDROX/SIMETH 30 ML UDC PO PRN (17:00)
[2024-07-25] MEDS ORDERED: busPIRone HCL 10 MG TABLET PO SCH (17:00)
[2024-07-25] MEDS ORDERED: GABAPENTIN 300 MG CAPSULE PO PRN (17:30)
[2024-07-25] MEDS ORDERED: DEXTROSE 50%-WATER 50 ML DISP.SYRIN IV PRN (17:30)
[2024-07-25] MEDS: clonazePAM 1 MG TABLET PO SCH (18:46)
[2024-07-25] MEDS: busPIRone 5 MG TABLET PO SCH (18:47)
[2024-07-25] MEDS: CALCIUM CARBONATE (1250) 500 MG TABLET PO SCH (18:47)
[2024-07-25] MEDS: CARVEDILOL 6.25 MG TABLET PO SCH (18:48)
[2024-07-25] MEDS: BLOOD SUGAR DIAGNOSTIC 1 EACH STRIP IN SCH (18:48)
[2024-07-25 20:00] VITALS: BP 128/56; TEMP 97.7; O2SAT 98
[2024-07-25] MEDS ORDERED: GABA600T12 PO (20:00)
[2024-07-25] MEDS: LITHIUM CARBONATE (300 MG CAP) 300 MG CAPSULE PO SCH (21:29)
[2024-07-25] MEDS: CLOZAPINE 100 MG TABLET PO SCH (21:29)
[2024-07-25] MEDS: ATORVASTATIN 40 MG TABLET PO SCH (21:29)
[2024-07-25] MEDS: GALANTAMINE HYDROBROMIDE 4 MG TABLET PO SCH (21:30)
[2024-07-25] MEDS: IV NS 0.9% 1,000 ML IV PRN (22:08)
[2024-07-26 07:33] LABS: BASOPHILS % (AUTO) 0.5 % (0.0-2.0); EOSINOPHILS # (AUTO) 0.3 K/uL (0.0-0.7); EOSINOPHILS % (AUTO) 5.2 % (0.0-6.0); HEMATOCRIT 38 % (33-45); HEMOGLOBIN 12.3 g/dL (11.5-14.8); LYMPHOCYTES # (AUTO) 1.4 K/uL (0.8-4.8); LYMPHOCYTES % (AUTO) 27.9 % (20.0-44.0); MEAN CORPUSCULAR HEMOGLOBIN 30 PG (26.0-33.0); MEAN CORPUSCULAR HGB CONC 33 g/dl (31.0-36.0); MEAN CORPUSCULAR VOLUME 93 fL (82-100); MONOCYTES # (AUTO) 0.5 K/uL (0.1-1.30); MONOCYTES % (AUTO) 10.1 % (2.0-12.0); NEUTROPHILS # (AUTO) 2.8 K/uL (1.8-8.9); NEUTROPHILS % (AUTO) 56.3 % (43.0-81.0); PLATELET COUNT (AUTO) 256 K/uL (150-450); RED BLOOD CELL COUNT(AUTO) 4.04 MIL/uL (4.0-5.2); RED CELL DISTRIBUTION WIDTH 14.3 % (11.5-15.0)
[2024-07-26 07:43] LABS: CALCIUM, SERUM 9.4 mg/dL (8.5-10.1); CREATININE 0.7 mg/dL (0.6-1.3); MAGNESIUM 2.6 mg/dL (1.8-2.4); PHOSPHORUS 4.1 mg/dL (2.5-4.9); POTASSIUM 5.5 mmol/L (3.5-5.1)
[2024-07-26 08:00] VITALS: BP 129/62; TEMP 97.7; O2SAT 100; O2SAT 98
[2024-07-26] MEDS: LEVOTHYROXINE SODIUM 75 MCG TABLET PO SCH (08:39)
[2024-07-26] MEDS: SODIUM POLYSTYRENE SULFONATE 15 G/60 ML BOTTLE PO ONE (08:39)
[2024-07-26] MEDS: FAMOTIDINE (20 MG) 20 MG TABLET PO SCH (08:40)
[2024-07-26] MEDS: LINAGLIPTIN 5 MG TABLET PO SCH (08:40)
[2024-07-26] MEDS: CHOLECALCIFEROL 1,000 UNIT TABLET (VIT D3) PO SCH (08:40)
[2024-07-26] MEDS: INSULIN REGULAR, HUMAN 100 UNIT/ML 3 ML VIAL SQ PRN (12:04)
[2024-07-26 13:33] LABS: THYROID STIMULATING HORMONE 2.44 uIU/mL (0.358-3.74)
[2024-07-26 16:00] VITALS: BP 135/64; TEMP 99; TEMP 99.4; O2SAT 99
[2024-07-26 19:30] LABS: CALCIUM, SERUM 9.3 mg/dL (8.5-10.1); CREATININE 0.9 mg/dL (0.6-1.3); POTASSIUM 4.3 mmol/L (3.5-5.1)
[2024-07-26 20:34] VITALS: BP 133/76; TEMP 97.5; O2SAT 100
[2024-07-27 08:00] VITALS: BP 130/64; TEMP 98.1; O2SAT 100
[2024-07-27 08:43] LABS: CALCIUM, SERUM 9.5 mg/dL (8.5-10.1); CREATININE 0.7 mg/dL (0.6-1.3); POTASSIUM 4.9 mmol/L (3.5-5.1)
[2024-07-27] MEDS: SOD FERRIC GLUC 125 MG in IV NS 0.9% 100 ML IV SCH (14:28)
[2024-07-27 16:00] VITALS: BP 135/61; TEMP 98.1; O2SAT 99
[2024-07-27 20:00] VITALS: BP 117/98; TEMP 98.4; O2SAT 100
[2024-07-28 08:00] VITALS: BP 131/49; TEMP 97.5; O2SAT 96
[2024-07-28 08:58] VITALS: BP 131/44
== END 2024-07-28 14:10 | DRG 641 ==
LOC: ER 15:20 → TELE 17:17 → MED 17:28
PROVIDERS: ADMIT Nurse Practitioner Acute Care; ATTEND Nurse Practitioner Acute Care
DX: R62.7 Adult failure to thrive (principal); E87.1 Hypo-osmolality and hyponatremia; F20.0 Paranoid schizophrenia; F02.83 Dementia in other diseases classified elsewhere, unspecified severity, with mood disturbance; E86.1 Hypovolemia; E03.9 Hypothyroidism, unspecified; E11.9 Type 2 diabetes mellitus without complications; E78.5 Hyperlipidemia, unspecified; E87.5 Hyperkalemia; Z79.84 Long term (current) use of oral hypoglycemic drugs; Z99.81 Dependence on supplemental oxygen; D64.9 Anemia, unspecified; F39 Unspecified mood [affective] disorder; G30.9 Alzheimer's disease, unspecified; I11.0 Hypertensive heart disease with heart failure; I50.9 Heart failure, unspecified; K21.9 Gastro-esophageal reflux disease without esophagitis; M35.00 Sjogren syndrome, unspecified; R07.9 Chest pain, unspecified; E83.41 Hypermagnesemia; R79.89 Other specified abnormal findings of blood chemistry; Z68.31 Body mass index [BMI] 31.0-31.9, adult
CPT/HCPCS: 36415; 71045-TC; 80048-TC; 80061-TC; 80076-TC; 82728-TC; 82962-TC; 83540-TC; 83735-TC; 83880; 84100-TC; 84439-TC; 84443-TC; 84484-TC; 85025-TC; 87081-TC; 93307-TC; 97116-TC; 97530-TC; A4223; G0378; J1815; J1885; J2916; J7030